=== PATIENT | female | born 1990 | race Caucasian/White ===

== ENCOUNTER → 2017-11-20 | Outpatient (CLI) | payer OTHER ==
[~2017-11-20] MED LIST: ATOM60CA PO
== END | disposition home or self-care (01) ==
LOC: C.LABSPEC 17:24
PROVIDERS: ATTEND Obstetrics & Gynecology
DX: Z34.02 Encounter for supervision of normal first pregnancy, second trimester (principal)

== ENCOUNTER → 2017-11-25 | Outpatient (CLI) | payer OTHER | END | disposition home or self-care (01) | LOC: C.LAB1850 14:27 | PROVIDERS: ATTEND Obstetrics & Gynecology | DX: Z34.02 Encounter for supervision of normal first pregnancy, second trimester (principal) ==

== ENCOUNTER → 2017-12-31 | Outpatient (CLI) | payer OTHER ==
[2017-12-31 12:33] LABS: HEMOGLOBIN 10.2 g/dL (12.0-16.0)
== END | disposition home or self-care (01) ==
LOC: C.LAB1850 08:15
PROVIDERS: ATTEND Obstetrics & Gynecology
DX: Z34.02 Encounter for supervision of normal first pregnancy, second trimester (principal); O28.1 Abnormal biochemical finding on antenatal screening of mother

== ENCOUNTER 2018-05-15 13:59 | Emergency (ER) | payer OTHER ==
[~2018-05-15] VITALS: Ht 165.1 cm; Wt 53.1 kg
[~2018-05-15 13:59] MED LIST changes: -ATOM60CA PO; +FERR1TAB61 PO; +PEDICHW50 PO
[2018-05-15 14:03] VITALS: Ht 165.1 cm; Wt 53.1 kg
[2018-05-15] MEDS ORDERED: LACTATED RINGER'S 1000ML 1,000 ML IV SCH (14:06)
[2018-05-15] MEDS ORDERED: DOXYCYCLINE IV 100 MG in DEXTROSE 5% 100ML 100 ML IV ONE (15:00)
[2018-05-15] MEDS ORDERED: IBUP-1050 PO (15:09)
[2018-05-15] MEDS ORDERED: ACET-1256 PO (15:09)
[2018-05-15] MEDS ORDERED: SERT1TAB88 PO (15:09)
[2018-05-15] MEDS ORDERED: FERR325T5 PO (15:09)
[2018-05-15] MEDS ORDERED: DOXYCYCLINE HYCLATE 100 MG CAP PO STA (15:44)
[2018-05-15] MEDS ORDERED: DOXYCYCLINE HYCLATE 100 MG CAP ONE (15:47)
[2018-05-15 16:00] VITALS: O2SAT 97
[2018-05-15] MEDS ORDERED: FENTANYL CITRATE INJ 50 MCG/1 ML 2 ML VIAL ONE (16:29)
[2018-05-15] MEDS ORDERED: PROPOFOL IV EMULSION 10 MG/ML 20 ML VIAL ONE ×2 (16:29→17:18)
[2018-05-15] MEDS ORDERED: SUCCINYLCHOLINE CHLORIDE 20 MG/ML 10 ML VIAL IV ONE (16:29)
[2018-05-15] MEDS ORDERED: MIDAZOLAM HCL 1 MG/ML 2ML VIAL ONE (16:30)
[2018-05-15] MEDS ORDERED: PHENYLEPHRINE HCL INJ 10 MG/ML VIAL ONE (16:34)
[2018-05-15] MEDS ORDERED: ONDANSETRON INJ 2 MG/ML 2 ML VIAL ONE (17:13)
[2018-05-15] MEDS ORDERED: OXYTOCIN INJ 10 UNITS/ML VIAL ONE (17:14)
[2018-05-15] MEDS ORDERED: DEXAMETHASONE SOD INJ 4 MG/ML VIAL ONE (17:15)
[2018-05-15] MEDS ORDERED: EpHEDrine SULFATE INJ 50 MG/ML AMP ONE (17:18)
[2018-05-15] MEDS ORDERED: SODIUM CHLORIDE 0.9% 1000ML 1,000 ML IV SCH (17:38)
[2018-05-15] MEDS ORDERED: KETOROLAC TROMETHAMINE 30 MG/ML VIAL ONE (17:41)
--- NOTE | 2018-05-15 17:41 | Discharge Instructions ---
Discharge Instructions Date of Service May 15, 2018. Visit Reason for Visit: D&C Discharge Discharge Diagnosis / Problem: retained placenta Discharge Goals Goal(s): Therapeutic intervention Activity Recommendations Activity Limitations: per Instructions/Follow-up section Anesthesia . Post Anesthesia Instructions: If you have had General Anesthesia or IV Sedation: * Do not drive today. * Resume driving when surgeon permits. * Do not make important decisions or sign legal documents today. * Call surgeon for: 1. Temperature elevations greater than 101 degrees F. 2. Uncontrollable pain. 3. Excessive bleeding. 4. Persistent nausea and vomiting. 5. Medication intolerance (nausea, vomiting or rash). * For nausea and vomiting use only clear liquids such as: tea, soda, bouillon until nausea subsides, then gradually increase diet as tolerated. * If you have any concerns or questions, call your surgeon's office. If physician is unavailable and it is an emergency, call 911 or go to the nearest emergency room. . Instructions / Follow-Up Instructions / Follow-Up ACTIVITY RECOMMENDATIONS: * Avoid tampons, douching, hot tubs, pools, and intercourse until bleeding has stopped. * May shower as usual. * No strenuous activity for 24-48 hours. After 24-48 hours, you may do anything you feel like doing (driving and sports are okay). SPECIAL CARE INSTRUCTIONS: Special Diet: * Mild nausea may occur in the immediate post-operative period. * Take clear liquids such as tea, cola or bouillon until all nausea has subsided; you may then resume your normal diet. Special Care: * Light bleeding and vaginal spotting can last from a few days to 3-4 weeks. Call your doctor if bleeding becomes heavier than the heaviest part of your period. * Check your temperature twice a day for one week. If it goes above 100.4 degrees Fahrenheit (38.0 Celsius), notify your doctor. * Call your doctor's office for an appointment for 6 weeks after your surgery. FOLLOW-UP VISIT: Call your doctor's office for an appointment for 6 weeks after your surgery. Diet Recommendations Recommended Home Diet: resume previous diet Procedures Procedures Performed: Dilation and curettage Pending Studies Studies pending at discharge: no Medical Emergencies . Who to Call and When: Medical Emergencies: If at any time you feel your situation is an emergency, please call 911 immediately. . Non-Emergent Contact Non-Emergency issues call your: Tools Programmer . . "Provider Documentation" section prepared by Mary Coffey PA Drug Monitoring Program Search Results: no issues identified
--- NOTE | 2018-05-15 17:43 | [facility] Post Operative Brief Note ---
Immediate Operative Summary Operative Date May 15, 2018. Pre-Operative Diagnosis Bleeding Post-Operative Diagnosis Same Procedure(s) Performed Dilation and curettage Surgeon Dr. Valdivia Continuous Dryout Operator Helper Surgeon(s) none Estimated Blood Loss 100 ml Findings Consistent with Post-Op Diagnosis top normal size uterus quarter size piece of retained placenta Fluids (cc crystalloids) 600 Specimens a. retained products of conception Drains None Anesthesia Type General Complication(s) none Disposition Accompanied Pt To Recover: yes Disposition: Recovery Room / PACU
[2018-05-15] MEDS ORDERED: OXYCODONE/ACETAMINOPHEN 5-325 TAB PO PRN (17:45)
[2018-05-15] MEDS ORDERED: PROMETHAZINE HCL INJ 12.5 MG in SODIUM CHLORIDE 0.9% 50ML 50 ML IV PRN (17:45)
[2018-05-15] MEDS ORDERED: FENTANYL CITRATE INJ 50 MCG/1 ML 2 ML VIAL IV PRN (17:45)
[2018-05-15] MEDS ORDERED: NALOXONE HCL 0.4 MG/1 ML VIAL/CARP IV PRN (17:45)
[2018-05-15] MEDS ORDERED: FLUMAZENIL 0.1 MG/1 ML 10 ML VIAL IV PRN (17:45)
[2018-05-15] MEDS ORDERED: EpHEDrine SULFATE INJ 50 MG/ML AMP IV PRN (17:45)
[2018-05-15] MEDS ORDERED: PROMETHAZINE HCL INJ 25 MG in SODIUM CHLORIDE 0.9% 50ML 50 ML IV PRN (17:45)
[2018-05-15] MEDS ORDERED: KETOROLAC TROMETHAMINE 30 MG/ML VIAL IV. PRN (17:45)
[2018-05-15] MEDS ORDERED: ATROPINE SULFATE 0.1 MG/ML 5ML SYR IV PRN (17:45)
[2018-05-15] MEDS ORDERED: ONDANSETRON INJ 2 MG/ML 2 ML VIAL IV PRN ×2 (17:45)
[2018-05-15] MEDS ORDERED: IBUPROFEN 600 MG TAB PO PRN (17:45)
--- NOTE | 2018-05-15 18:10 | Anesthesiology Progress Note ---
Anesthesia Post Op Note Date & Time May 15, 2018 at 18:09 Vital Signs Pain Intensity: 3 Vital Signs Past 12 Hours Date Time Temp Pulse Resp B/P (MAP) Pulse Ox O2 Delivery O2 Flow Rate FiO2 05/15/18 17:55 59 17 114/72 100 Oxymask 8 05/15/18 17:45 69 17 110/68 100 Oxymask 8 05/15/18 17:37 36.3 78 16 116/78 100 Oxymask 8 05/15/18 16:00 52 20 89/54 97 05/15/18 15:55 52 89/54 97 Room Air 05/15/18 14:03 36.5 74 20 149/89 96 Room Air Notes Mental Status: alert / awake / arousable, participated in evaluation Pt Amnestic to Procedure: Yes Nausea / Vomiting: adequately controlled Pain: adequately controlled Airway Patency, RR, SpO2: stable & adequate BP & HR: stable & adequate Hydration State: stable & adequate Anesthetic Complications: no major complications apparent
[2018-05-15 18:20] VITALS: BP 100/64; PULSE 58; TEMP 36.7; O2SAT 97
[2018-05-15 18:40] VITALS: BP 114/56; PULSE 59; TEMP 36.7; O2SAT 97
--- NOTE | 2018-05-15 20:52 | OPERATIVE REPORT ---
DATE OF OPERATION: 05/15/2018 PREOPERATIVE DIAGNOSIS: Delayed bleeding POSTOPERATIVE DIAGNOSIS: Delayed bleeding and retained placenta. PROCEDURE: D and C. SURGEON: Mary Valdivia MD ANESTHESIA: General endotracheal. BLOOD LOSS: 100 mL HISTORY: The patient is a 27-year-old 1, para 1-0-0-1 white female who delivered on 04/09/2018 a spontaneous vaginal delivery. The placenta also delivered spontaneously and was felt to be intact at that time. She had a relatively uncomplicated course until approximately 3 days ago when she developed increased bleeding after her initial bleeding had pretty much stopped. She passed 2 large clots and was having some increased cramping. No fever or chills and no other symptoms. She presented to [facility] Emergency Room last night where they felt she had retained that tissue in her uterus, although her bleeding was not significant at that time. She was reexamined in the office today. A repeat ultrasound was done by our ultrasonographers, which revealed a thickened endometrium, which also appeared to have vascularity. The ultrasound done at [facility] did not comment on the endometrial lining. Because of her ongoing bleeding and cramping and the thickened endometrium, it was felt prudent to proceed with D and C. The patient understands the risks of procedure and why we are doing it and is willing to proceed. GROSS FINDINGS: Uterus is approximately 6-8 weeks in size and mobile. There are no adnexal masses present. Cervix admits a fingertip but the internal os is closed. Otherwise, external genitalia are within normal limits and appeared to be well healed from her recent delivery. PROCEDURE: After the patient received adequate general endotracheal anesthesia, she was prepped and draped in usual sterile fashion. After bladder was emptied, a weighted speculum was placed in the vagina and the anterior lip of the cervix was grasped with an Allis clamp. The cervix was noted to be dilated to a #27 Hanks dilator. Sharp curettage was performed of the endometrial cavity. There was adherent tissue in the left lateral portion of the fundus that was removed. There was good uterine cry throughout the uterus after removing the retained piece of tissue. The patient received dilute IV Pitocin. Bleeding was noted to be minimal at the end of the case. The Allis clamp was taken off of the anterior lip of the cervix. Bleeding was observed and at that point appeared to be scant from the cervix. The case was then terminated. The patient tolerated the procedure well and was stable upon arrival in recovery room. I attest to the content of the Intraoperative Record and any orders documented therein. Any exceptions are noted below. MTDD
[2018-05-15] MEDS ORDERED: DOXYCYCLINE HYCLATE 100 MG CAP PO SCH (21:00)
== END 2018-05-15 19:15 | disposition home or self-care (01) ==
LOC: C.EDB 14:02 → C.EDC 19:15
DX: O72.2 Delayed and secondary postpartum hemorrhage (principal); O72.0 Third-stage hemorrhage; O99.335 Smoking (tobacco) complicating the puerperium; O99.345 Other mental disorders complicating the puerperium; Z91.040 Latex allergy status; F17.200 Nicotine dependence, unspecified, uncomplicated; F32.9 Major depressive disorder, single episode, unspecified